=== PATIENT | female | born 1955 | race African-American/Black ===

== ENCOUNTER 2022-08-29 11:31 | Inpatient (IN) | payer MEDICARE ==
[~2022-08-29] VITALS: Ht 167.6 cm; Wt 74.8 kg
[2022-08-29 14:12] LABS: BASOPHILS % 0.5 % (0.0-2.0); EOSINOPHILS % 1.1 % (0.0-5.0); HEMATOCRIT. 28.3 % (36.0-48.0); HEMOGLOBIN. 8.6 g/dL (12.0-16.0); LYMPHOCYTES % 14.4 % (20.0-50.0); MEAN CORPUSCULAR HEMOGLOBIN 23.6 pg (28.0-32.0); MEAN CORPUSCULAR VOLUME 77.6 fL (81.0-99.0); MONOCYTES % 8.2 % (2.0-8.0); NEUTROPHILS % 75.8 % (40.0-76.0); PLATELET 478 x1000/uL (130-400); RED BLOOD CELL COUNT 3.64 mill/uL (4.2-5.4); RED CELL DISTRIBUTION WIDTH 28.2 % (11.6-14.6)
[2022-08-29 14:20] LABS: INR 1.2; PROTHROMBIN TIME 12.9 sec (9.6-11.0)
[2022-08-29 14:21] LABS: CHLORIDE 102 mEq/L (98-107)
[2022-08-29 14:46] LABS: PLATELET ESTIMATE NORMAL
[2022-08-29] MEDS: AMPICILLIN SOD/SULBACTAM NA 3 G in SODIUM CHLORIDE 0.9% 100 ML IV SCH (15:38)
[2022-08-29] MEDS ORDERED: SODIUM CHLORIDE 0.9% 1,000 ML IV ONE (18:00)
[2022-08-29] MEDS ORDERED: VANCOMYCIN 1G PREMIX 200 ML IV SCH (18:00)
[2022-08-29] MEDS ORDERED: ACETAMINOPHEN 325MG TABLET PO ONE (18:00)
[2022-08-29] MEDS ORDERED: CLONIDINE 0.1MG TABLET PO PRN (19:30)
[2022-08-29] MEDS ORDERED: ONDANSETRON HCL 4MG/2ML INJ IV PRN (19:30)
[2022-08-29] MEDS ORDERED: MAGNESIUM/ALUMINUM HYDROXIDE/SIMETHICONE 30ML UDC PO PRN (19:30)
[2022-08-29] MEDS ORDERED: GUAIFENESIN 200MG/10ML SUGAR FREE UDC PO PRN (19:30)
[2022-08-29] MEDS ORDERED: DOCUSATE SODIUM 100MG CAPSULE PO PRN (19:30)
[2022-08-29] MEDS ORDERED: ACETAMINOPHEN 325MG TABLET PO PRN (19:30)
[2022-08-29] MEDS: SODIUM CHLORIDE 0.9% 1,000 ML IV SCH (19:46)
[2022-08-30] MEDS: AMPICILLIN SOD/SULBACTAM NA 3 G in SODIUM CHLORIDE 0.9% 100 ML IV SCH ×2 (01:00→03:30)
[2022-08-30] MEDS: SODIUM CHLORIDE 0.9% 1,000 ML IV SCH ×2 (05:40→16:05)
[2022-08-30 05:58] LABS: BASOPHILS % 0.5 % (0.0-2.0); EOSINOPHILS % 0.3 % (0.0-5.0); HEMATOCRIT. 28.9 % (36.0-48.0); HEMOGLOBIN. 8.7 g/dL (12.0-16.0); LYMPHOCYTES % 13.8 % (20.0-50.0); MEAN CORPUSCULAR HEMOGLOBIN 23.2 pg (28.0-32.0); MEAN CORPUSCULAR VOLUME 77.2 fL (81.0-99.0); MEAN PLATELET VOLUME 7.6 fl (7.4-10.4); MONOCYTES % 8.6 % (2.0-8.0); NEUTROPHILS % 76.8 % (40.0-76.0); PLATELET 475 x1000/uL (130-400); RED BLOOD CELL COUNT 3.74 mill/uL (4.2-5.4); RED CELL DISTRIBUTION WIDTH 27.8 % (11.6-14.6)
[2022-08-30 06:06] LABS: CHLORIDE 102 mEq/L (98-107)
[2022-08-30 06:25] LABS: HDL CHOLESTEROL 46 mg/dL (40-59); LDL CHOLESTEROL 20 mg/dL (5-100); TOTAL IRON BINDING CAPACITY 160 ug/dL (250-450)
[2022-08-30 06:49] LABS: VITAMIN B12 SERUM >2000 pg/mL pg/mL (211-911)
[2022-08-30 06:51] LABS: FERRITIN 356 ng/mL (10-291)
[2022-08-30] MEDS: ENOXAPARIN 40MG/0.4ML SYR SUBCUT SCH (09:57)
[2022-08-30 12:00] VITALS: BP 104/86
[2022-08-30 12:48] VITALS: BP 147/73
[2022-08-30 16:00] VITALS: BP 116/66
[2022-08-30] MEDS: VANCOMYCIN 750MG PREMIX 150 ML IV SCH (17:16)
[2022-08-30] MEDS ORDERED: NALOXONE HCL 0.4MG/ML VIAL IV PRN (18:30)
[2022-08-30 20:00] VITALS: BP 120/52
[2022-08-30] MEDS: FERROUS SULFATE 325MG TABLET PO SCH (20:55)
[2022-08-30] MEDS: PIPERACILLIN/TAZOBACTAM 3.375 G in DEXTROSE 5% WATER 50 ML IV SCH (21:18)
[2022-08-30] MEDS: HYDROCODONE/ACETAMINOPHEN 5/325MG TABLET PO PRN (23:10)
[2022-08-31] VITALS (7 sets, daily range): BP systolic 99–123; BP diastolic 46–74
[2022-08-31] MEDS: SODIUM CHLORIDE 0.9% 1,000 ML IV SCH ×3 (01:30→22:48)
[2022-08-31] MEDS: HYDROCODONE/ACETAMINOPHEN 5/325MG TABLET PO PRN ×2 (03:51→20:35)
[2022-08-31] MEDS: VANCOMYCIN 750MG PREMIX 150 ML IV SCH ×2 (04:55→20:26)
[2022-08-31] MEDS: PIPERACILLIN/TAZOBACTAM 3.375 G in DEXTROSE 5% WATER 50 ML IV SCH ×3 (06:19→22:47)
[2022-08-31 06:35] LABS: BASOPHILS % 0.7 % (0.0-2.0); EOSINOPHILS % 0.9 % (0.0-5.0); HEMATOCRIT. 25.9 % (36.0-48.0); LYMPHOCYTES % 11.6 % (20.0-50.0); MEAN CORPUSCULAR HEMOGLOBIN 23.8 pg (28.0-32.0); MEAN CORPUSCULAR VOLUME 77.2 fL (81.0-99.0); MEAN PLATELET VOLUME 7.4 fl (7.4-10.4); MONOCYTES % 9.4 % (2.0-8.0); NEUTROPHILS % 77.4 % (40.0-76.0); PLATELET 405 x1000/uL (130-400); RED BLOOD CELL COUNT 3.36 mill/uL (4.2-5.4); RED CELL DISTRIBUTION WIDTH 28.1 % (11.6-14.6)
[2022-08-31] MEDS: ENOXAPARIN 40MG/0.4ML SYR SUBCUT SCH (08:45)
[2022-08-31 08:57] LABS: CHLORIDE 105 mEq/L (98-107)
[2022-08-31 09:19] LABS: PHOSPHORUS 3.4 mg/dL (2.5-4.9)
[2022-08-31] MEDS: SODIUM HYPOCHLORITE 0.125% 473ML SOLUTION TOP SCH (15:51)
[2022-09-01] VITALS: BP 133/60
[2022-09-01 04:00] VITALS: BP 129/53
[2022-09-01] MEDS: PIPERACILLIN/TAZOBACTAM 3.375 G in DEXTROSE 5% WATER 50 ML IV SCH (05:35)
[2022-09-01 06:47] LABS: BASOPHILS % 0.4 % (0.0-2.0); EOSINOPHILS % 2.2 % (0.0-5.0); HEMATOCRIT. 31.6 % (36.0-48.0); HEMOGLOBIN. 9.2 g/dL (12.0-16.0); LYMPHOCYTES % 11.1 % (20.0-50.0); MEAN CORPUSCULAR HEMOGLOBIN 23.5 pg (28.0-32.0); MEAN CORPUSCULAR VOLUME 80.4 fL (81.0-99.0); MEAN PLATELET VOLUME 7.3 fl (7.4-10.4); MONOCYTES % 8.4 % (2.0-8.0); NEUTROPHILS % 77.9 % (40.0-76.0); PLATELET 396 x1000/uL (130-400); RED BLOOD CELL COUNT 3.93 mill/uL (4.2-5.4)
[2022-09-01 07:01] LABS: CHLORIDE 102 mEq/L (98-107)
[2022-09-01 07:10] LABS: PHOSPHORUS 2.7 mg/dL (2.5-4.9)
[2022-09-01 08:00] VITALS: BP 130/52
[2022-09-01] MEDS: SODIUM HYPOCHLORITE 0.125% 473ML SOLUTION TOP SCH (08:59)
[2022-09-01] MEDS: FERROUS SULFATE 325MG TABLET PO SCH (08:59)
[2022-09-01] MEDS: ENOXAPARIN 40MG/0.4ML SYR SUBCUT SCH (08:59)
[2022-09-01] MEDS: SODIUM CHLORIDE 0.9% 1,000 ML IV SCH ×2 (09:00→18:34)
[2022-09-01] MEDS: VANCOMYCIN 750MG PREMIX 150 ML IV SCH (09:05)
[2022-09-01] MEDS ORDERED: SERT-422 PO (11:59)
[2022-09-01 12:00] VITALS: BP 126/72
[2022-09-01] MEDS ORDERED: ABIL5 PO (12:01)
[2022-09-01] MEDS ORDERED: LOSA50TA3 PO (12:03)
[2022-09-01] MEDS ORDERED: ATOR40TA70 PO (12:04)
[2022-09-01] MEDS ORDERED: LEVO125T8 PO (12:06)
[2022-09-01] MEDS ORDERED: METF750T46 PO (12:08)
[2022-09-01] MEDS ORDERED: METH-773 PO (12:09)
[2022-09-01] MEDS ORDERED: PANT40TA51 PO (12:10)
[2022-09-01] MEDS ORDERED: FERR325T6 PO (12:14)
[2022-09-01] MEDS ORDERED: CYAN-33 PO (12:17)
[2022-09-01] MEDS ORDERED: FOLI-43 PO (12:17)
[2022-09-01] MEDS: METHOCARBAMOL 500MG TABLET PO SCH ×3 (14:22→21:22)
[2022-09-01 16:00] VITALS: BP 99/55
[2022-09-01] MEDS: LEVOFLOXACIN 250MG TABLET PO SCH (17:20)
[2022-09-01 20:00] VITALS: BP 126/70
[2022-09-01] MEDS: ARIPIPRAZOLE 5MG TABLET PO SCH (21:20)
[2022-09-01] MEDS: SERTRALINE HCL 50MG TABLET PO SCH (21:20)
[2022-09-01] MEDS: ATORVASTATIN CALCIUM 40MG TABLET PO SCH (21:22)
[2022-09-01] MEDS: SULFAMETHOXAZOLE/TRIMETHOPRIM 800/160MG TABLET PO SCH (21:22)
[2022-09-01] MEDS: FOLIC ACID 1MG TABLET PO SCH (21:23)
[2022-09-01] MEDS: PANTOPRAZOLE 40MG DR TABLET PO SCH (21:32)
[2022-09-02] VITALS (7 sets, daily range): BP systolic 97–125; BP diastolic 54–74
[2022-09-02] MEDS: HYDROCODONE/ACETAMINOPHEN 5/325MG TABLET PO PRN ×2 (02:49→23:34)
[2022-09-02] MEDS: SODIUM CHLORIDE 0.9% 1,000 ML IV SCH ×3 (02:59→22:44)
[2022-09-02] MEDS ORDERED: VANCOMYCIN 750MG PREMIX 150 ML IV SCH (06:00)
[2022-09-02] MEDS: LEVOTHYROXINE SODIUM 125MCG TABLET PO SCH (06:49)
[2022-09-02] MEDS: CYANOCOBALAMIN 1000MCG TABLET PO SCH (06:50)
[2022-09-02] MEDS: SULFAMETHOXAZOLE/TRIMETHOPRIM 800/160MG TABLET PO SCH ×2 (08:29→21:37)
[2022-09-02] MEDS: PANTOPRAZOLE 40MG DR TABLET PO SCH ×2 (08:29→21:37)
[2022-09-02] MEDS: METHOCARBAMOL 500MG TABLET PO SCH ×4 (08:29→21:37)
[2022-09-02] MEDS: ENOXAPARIN 40MG/0.4ML SYR SUBCUT SCH (08:29)
[2022-09-02] MEDS: SODIUM HYPOCHLORITE 0.125% 473ML SOLUTION TOP SCH (08:30)
[2022-09-02] MEDS ORDERED: DULA0.75 SQ (11:33)
[2022-09-02] MEDS: LEVOFLOXACIN 250MG TABLET PO SCH (16:01)
[2022-09-02] MEDS: ATORVASTATIN CALCIUM 40MG TABLET PO SCH (21:37)
[2022-09-02] MEDS: ARIPIPRAZOLE 5MG TABLET PO SCH (21:37)
[2022-09-02] MEDS: SERTRALINE HCL 50MG TABLET PO SCH (21:37)
[2022-09-02] MEDS: FOLIC ACID 1MG TABLET PO SCH (21:37)
[2022-09-03 04:00] VITALS: BP 126/69
[2022-09-03] MEDS: LEVOTHYROXINE SODIUM 125MCG TABLET PO SCH (06:42)
[2022-09-03] MEDS: CYANOCOBALAMIN 1000MCG TABLET PO SCH (06:42)
[2022-09-03 07:26] LABS: BASOPHILS % 0.4 % (0.0-2.0); EOSINOPHILS % 1.5 % (0.0-5.0); HEMATOCRIT. 25.5 % (36.0-48.0); HEMOGLOBIN. 7.8 g/dL (12.0-16.0); LYMPHOCYTES % 11.4 % (20.0-50.0); MEAN CORPUSCULAR HEMOGLOBIN 23.6 pg (28.0-32.0); MEAN CORPUSCULAR VOLUME 77.7 fL (81.0-99.0); MONOCYTES % 9.2 % (2.0-8.0); NEUTROPHILS % 77.5 % (40.0-76.0); PLATELET 421 x1000/uL (130-400); RED BLOOD CELL COUNT 3.29 mill/uL (4.2-5.4); RED CELL DISTRIBUTION WIDTH 27.3 % (11.6-14.6)
[2022-09-03 07:47] LABS: CHLORIDE 104 mEq/L (98-107)
[2022-09-03 08:00] VITALS: BP 136/68
[2022-09-03] MEDS: ENOXAPARIN 40MG/0.4ML SYR SUBCUT SCH (08:04)
[2022-09-03] MEDS: SULFAMETHOXAZOLE/TRIMETHOPRIM 800/160MG TABLET PO SCH ×2 (08:05→21:05)
[2022-09-03] MEDS: FERROUS SULFATE 325MG TABLET PO SCH (08:05)
[2022-09-03] MEDS: SODIUM CHLORIDE 0.9% 1,000 ML IV SCH ×2 (08:05→19:30)
[2022-09-03] MEDS: METHOCARBAMOL 500MG TABLET PO SCH ×4 (08:05→21:05)
[2022-09-03] MEDS: PANTOPRAZOLE 40MG DR TABLET PO SCH ×2 (08:05→21:05)
[2022-09-03] MEDS: SODIUM HYPOCHLORITE 0.125% 473ML SOLUTION TOP SCH (08:05)
[2022-09-03] MEDS ORDERED: SULF1TAB44 PO ×2 (09:11)
[2022-09-03] MEDS ORDERED: LEVO750T68 PO ×2 (09:11)
[2022-09-03 12:00] VITALS: BP 122/57
[2022-09-03 16:00] VITALS: BP 120/68
[2022-09-03] MEDS: LEVOFLOXACIN 250MG TABLET PO SCH (16:37)
[2022-09-03 20:00] VITALS: BP 112/85
[2022-09-03] MEDS: FOLIC ACID 1MG TABLET PO SCH (21:04)
[2022-09-03] MEDS: ARIPIPRAZOLE 5MG TABLET PO SCH (21:04)
[2022-09-03] MEDS: ATORVASTATIN CALCIUM 40MG TABLET PO SCH (21:05)
[2022-09-03] MEDS: SERTRALINE HCL 50MG TABLET PO SCH (21:05)
[2022-09-04] VITALS: BP 105/75
[2022-09-04 04:00] VITALS: BP 137/67
[2022-09-04] MEDS: SODIUM CHLORIDE 0.9% 1,000 ML IV SCH ×2 (04:49→15:30)
[2022-09-04] MEDS: LEVOTHYROXINE SODIUM 125MCG TABLET PO SCH (06:56)
[2022-09-04] MEDS: CYANOCOBALAMIN 1000MCG TABLET PO SCH ×2 (06:56→09:17)
[2022-09-04 08:00] VITALS: BP 138/58
[2022-09-04] MEDS: PANTOPRAZOLE 40MG DR TABLET PO SCH ×2 (09:17→20:39)
[2022-09-04] MEDS: SULFAMETHOXAZOLE/TRIMETHOPRIM 800/160MG TABLET PO SCH ×2 (09:17→20:40)
[2022-09-04] MEDS: METHOCARBAMOL 500MG TABLET PO SCH ×4 (09:17→20:39)
[2022-09-04] MEDS: ENOXAPARIN 40MG/0.4ML SYR SUBCUT SCH (09:18)
[2022-09-04] MEDS: SODIUM HYPOCHLORITE 0.125% 473ML SOLUTION TOP SCH (09:18)
[2022-09-04 12:00] VITALS: BP 133/67
[2022-09-04 16:21] VITALS: BP 134/68
[2022-09-04 17:47] LABS: BG BASE EXCESS 3.9 mmol/L (-2.0-2.0); BG CARBOXYHEMOGLOBIN 0.4 % (0.5-1.5); BG DEOXYHEMOGLOBIN 24.7 % (0.0-5.0); BG FRACTION INSPIRED OXYGEN 21; BG HCO3 ACT 28.7 mmol/L (22.0-26.0); BG METHEMOGLOBIN 0.7 % (0.0-1.5); BG OXYHEMOGLOBIN 74.2 % (94.0-97.0); BG PCO2 44.1 mmHg (35.0-45.0); BG PH 7.431 (7.350-7.450); BG PO2 41.6 mmHg (75.0-100.0); BG SAMPLE SITE RIGHT BRACHIAL; BG TOTAL HEMOGLOBIN 9.4 g/dL (12.0-18.0); BG VENT MODE ROOM AIR
[2022-09-04] MEDS: LEVOFLOXACIN 250MG TABLET PO SCH (18:08)
[2022-09-04 20:00] VITALS: BP 140/55
[2022-09-04] MEDS: ARIPIPRAZOLE 5MG TABLET PO SCH (20:39)
[2022-09-04] MEDS: FOLIC ACID 1MG TABLET PO SCH (20:39)
[2022-09-04] MEDS: SERTRALINE HCL 50MG TABLET PO SCH (20:39)
[2022-09-04] MEDS: ATORVASTATIN CALCIUM 40MG TABLET PO SCH (20:39)
[2022-09-05] VITALS: BP 135/65
[2022-09-05] MEDS: SODIUM CHLORIDE 0.9% 1,000 ML IV SCH ×3 (01:30→20:57)
[2022-09-05 04:00] VITALS: BP 156/71
[2022-09-05] MEDS: LEVOTHYROXINE SODIUM 125MCG TABLET PO SCH (07:01)
[2022-09-05 08:00] VITALS: BP 148/84
[2022-09-05] MEDS: ENOXAPARIN 40MG/0.4ML SYR SUBCUT SCH (08:11)
[2022-09-05] MEDS: METHOCARBAMOL 500MG TABLET PO SCH ×4 (08:11→20:57)
[2022-09-05] MEDS: PANTOPRAZOLE 40MG DR TABLET PO SCH ×2 (08:11→20:57)
[2022-09-05] MEDS: SULFAMETHOXAZOLE/TRIMETHOPRIM 800/160MG TABLET PO SCH ×2 (08:11→20:57)
[2022-09-05] MEDS: SODIUM HYPOCHLORITE 0.125% 473ML SOLUTION TOP SCH (10:35)
[2022-09-05 12:00] VITALS: BP 140/98
[2022-09-05] MEDS: ACETAMINOPHEN 325MG TABLET PO PRN (12:29)
[2022-09-05 16:00] VITALS: BP 134/64
[2022-09-05] MEDS: LEVOFLOXACIN 250MG TABLET PO SCH (17:21)
[2022-09-05 20:00] VITALS: BP 124/70
[2022-09-05] MEDS: ATORVASTATIN CALCIUM 40MG TABLET PO SCH (20:57)
[2022-09-05] MEDS: SERTRALINE HCL 50MG TABLET PO SCH (20:57)
[2022-09-05] MEDS: FOLIC ACID 1MG TABLET PO SCH (20:57)
[2022-09-05] MEDS: ARIPIPRAZOLE 5MG TABLET PO SCH (20:57)
[2022-09-06] VITALS (7 sets, daily range): BP systolic 114–149; BP diastolic 62–100
[2022-09-06 05:59] LABS: INR 1.2; PROTHROMBIN TIME 12.7 sec (9.6-11.0)
[2022-09-06] MEDS: LEVOTHYROXINE SODIUM 125MCG TABLET PO SCH (06:11)
[2022-09-06 06:12] LABS: BASOPHILS % 0.4 % (0.0-2.0); EOSINOPHILS % 2.7 % (0.0-5.0); HEMATOCRIT. 29.6 % (36.0-48.0); HEMOGLOBIN. 9.3 g/dL (12.0-16.0); MEAN CORPUSCULAR HEMOGLOBIN 24.7 pg (28.0-32.0); MEAN CORPUSCULAR VOLUME 78.8 fL (81.0-99.0); MEAN PLATELET VOLUME 7.1 fl (7.4-10.4); MONOCYTES % 9.9 % (2.0-8.0); PLATELET 423 x1000/uL (130-400); RED BLOOD CELL COUNT 3.76 mill/uL (4.2-5.4); RED CELL DISTRIBUTION WIDTH 27.3 % (11.6-14.6)
[2022-09-06 06:34] LABS: CHLORIDE 100 mEq/L (98-107)
[2022-09-06] MEDS: SODIUM CHLORIDE 0.9% 1,000 ML IV SCH ×3 (07:30→20:00)
[2022-09-06] MEDS: ENOXAPARIN 40MG/0.4ML SYR SUBCUT SCH (08:35)
[2022-09-06] MEDS: FERROUS SULFATE 325MG TABLET PO SCH (08:35)
[2022-09-06] MEDS: PANTOPRAZOLE 40MG DR TABLET PO SCH ×2 (08:35→21:28)
[2022-09-06] MEDS: METHOCARBAMOL 500MG TABLET PO SCH ×4 (08:35→21:28)
[2022-09-06] MEDS: CYANOCOBALAMIN 1000MCG TABLET PO SCH (08:35)
[2022-09-06] MEDS: SODIUM HYPOCHLORITE 0.125% 473ML SOLUTION TOP SCH (08:36)
[2022-09-06] MEDS: ARIPIPRAZOLE 5MG TABLET PO SCH (21:28)
[2022-09-06] MEDS: FOLIC ACID 1MG TABLET PO SCH (21:28)
[2022-09-06] MEDS: SERTRALINE HCL 50MG TABLET PO SCH (21:28)
[2022-09-06] MEDS: ATORVASTATIN CALCIUM 40MG TABLET PO SCH (21:28)
[2022-09-06] MEDS: ACETAMINOPHEN 325MG TABLET PO PRN (22:02)
[2022-09-07] VITALS: BP 128/70
[2022-09-07 04:00] VITALS: BP 137/73
[2022-09-07] MEDS: LEVOTHYROXINE SODIUM 125MCG TABLET PO SCH (05:37)
[2022-09-07] MEDS: SODIUM HYPOCHLORITE 0.125% 473ML SOLUTION TOP SCH (09:00)
[2022-09-07] MEDS: ENOXAPARIN 40MG/0.4ML SYR SUBCUT SCH (09:16)
[2022-09-07] MEDS: PANTOPRAZOLE 40MG DR TABLET PO SCH (09:16)
[2022-09-07] MEDS: CYANOCOBALAMIN 1000MCG TABLET PO SCH (09:16)
[2022-09-07] MEDS: METHOCARBAMOL 500MG TABLET PO SCH (09:16)
== END 2022-09-07 15:58 | disposition home health service (06) | DRG 854 ==
LOC: ER 11:41 → MICUSO 18:11 → SUPCPDRO 19:24 → 8WST 08-30 10:41
PROVIDERS: ADMIT Internal Medicine; ATTEND Internal Medicine
PROC: 0KBT0ZZ Excision of Left Lower Leg Muscle, Open Approach (ICD-10-PCS; principal; 2022-08-31)
DX: A41.9 Sepsis, unspecified organism (principal); L97.123 Non-pressure chronic ulcer of left thigh with necrosis of muscle; D50.9 Iron deficiency anemia, unspecified; D63.8 Anemia in other chronic diseases classified elsewhere; R74.01 Elevation of levels of liver transaminase levels; E88.09 Other disorders of plasma-protein metabolism, not elsewhere classified; I70.202 Unspecified atherosclerosis of native arteries of extremities, left leg; E11.51 Type 2 diabetes mellitus with diabetic peripheral angiopathy without gangrene; L89.150 Pressure ulcer of sacral region, unstageable; F17.210 Nicotine dependence, cigarettes, uncomplicated; F20.9 Schizophrenia, unspecified
CPT/HCPCS: 36415; 36600; 71045; 73700; 80048; 80053; 80061; 80202; 82040; 82375; 82607; 82728; 82746; 82805; 83036; 83540; 83550; 83605; 83735; 84100; 84134; 84145; 84439; 84443; 85025; 93005; 93306; 93923; 93970; 97162; 97166; 97530; 97535; 99285; A6261; C1893; J0295; J1650; J2405; J2543; J3370; J7030; J7050; J7060